=== PATIENT | female | born 1960 | race Caucasian/White ===

== ENCOUNTER 2020-12-22 18:47 | Emergency (ER) | payer OTHER ==
[~2020-12-22] VITALS: Ht 165 cm; Wt 108.8 kg
--- NOTE | 2020-12-22 20:23 | ED General ---
General Chief Complaint: Glucose Problems Stated Complaint: DIZZY/ELEVATED BLOOD SUGAR Source of Information: Patient (WAIFLORINDA Nunes DO) History of Present Illness Date Seen by Provider: Dec 22, 2020 Time Seen by Provider: 18:58 Initial Comments PT ARRIVES VIA POV FROM HOME IN [place] C/O DIZZINESS ALL DAY TODAY C/O ELEVATED BLOOD SUGAR IN 400'S TODAY C/O UPPER ABDOMINAL CRAMPING AND THIS MAKES HER DIZZY NO NAUSEA/VOMITING/DIARRHEA. HAS HAD 2-3 SMALL, HARD BM'S TODAY--STATES SHE WAS STRAINING TO HAVE BM EARLIER TODAY, AND ALMOST PASSED OUT ON THE TOILET STATES SHE HAS FELT LIKE SHE IS GOING TO PASS OUT SEVERAL TIMES TODAY NO FEVER/SWEATS/CHILLS NO URINARY SYMPTOMS C/O THIRST AND HAS BEEN DRINKING WATER ALL DAY, INCLUDING ON ARRIVAL TO ER STATES SHE HAS BEEN ABLE TO EAT NORMALLY TODAY STATES SHE WAS SEEN AT [facility] IN [place] THIS MORNING FOR THIS PROBLEM--STATES HER BLOOD PRESSURE WAS LOW --70'S SYTOLIC--AND THEY GAVE HER IV FLUIDS AND SENT HER HOME HAS AN APPOINTMENT THERE TOMORROW AT 0840 FOR FOLLOW UP PT RECEIVED HER SECOND COVID-19 SHOT ON Tuesday12/19/20 PCP: [facility] (FLORINDA CARRENO DO) Allergies and Home Medications Allergies Coded Allergies: No Allergy Information Available (Unverified , 12/22/20) Patient Home Medication List Home Medication List Reviewed: Yes (FLORINDA CARRENO DO) Review of Systems Review of Systems Constitutional: see HPI; No chills, No diaphoresis; dizziness; No fever, No malaise, No weakness EENTM: no symptoms reported Respiratory: no symptoms reported; No cough, No short of breath Cardiovascular: no symptoms reported; No chest pain Gastrointestinal: see HPI, abdominal pain; No diarrhea, No loss of appetite, No nausea, No vomiting Genitourinary: no symptoms reported Musculoskeletal: no symptoms reported Skin: no symptoms reported Psychiatric/Neurological: No Symptoms Reported Hematologic/Lymphatic: No Symptoms Reported Immunological/Allergic: no symptoms reported (FLORINDA CARRENO DO) Past Hxcarbs-Jnprbu-Pemmqd Hx Past Med/Social Hx: Reviewed and Corrections made (FLORINDA CARRENO DO) Patient Social History Alcohol Use: Denies Use Drug of Choice: DENIES Smoking Status: Never a Smoker (FLORINDA CARRENO DO) Past Medical History Surgeries: Yes Abdominal, Bladder Surgery, Hysterectomy, Oophorectomy, Tonsillectomy Respiratory: No Cardiac: Yes High Cholesterol, Hypertension Neurological: No Genitourinary: No Gastrointestinal: Yes Gastroesophageal Reflux Musculoskeletal: No Endocrine: Yes (OBESITY) Diabetes, Non-Insulin dep HEENT: No Cancer: No Psychosocial: Yes Anxiety, Depression Integumentary: No Blood Disorders: No (FLORINDA CARRENO DO) Family Medical History PAST SURGICAL HISTORY: -TONSILLECTOMY 02/1965 -"BLADDER STRETCHED" 07/1978 -5 LAPAROSCOPIES [phone] FOR INFERTILITY -1 OPEN SURGERY TO REMOVE ENDOMETRIOSIS 1990 -HYSTERECTOMY/BILATERAL SALPINGO-OOPHORECTOMY 03/1996 -COLONOSCOPY 12/2008 (FLORINDA CARRENO DO) Physical Exam Vital Signs Vital Signs - First Documented 12/22/20 19:00 Temp 35.9 Pulse 101 Resp 26 B/P (MAP) 137/72 (93) Pulse Ox 98 (LAINE OVALLE APRN) Vital Signs Capillary Refill : (FLORINDA CARRENO DO) Height, Weight, BMI Height: '" Weight: lbs. oz. kg; BMI Method: General Appearance: No Apparent Distress, WD/WN, Anxious, Obese, Other (MILDLY DYSPNEIC ON ARRIVAL) HEENT: PERRL/EOMI, Pale Conjunctivae (R) Neck: Normal Inspection Respiratory: Normal Breath Sounds, Other (MILDLY DYSPNEIC ON ARRIVAL) Cardiovascular: Regular Rate, Rhythm, No Edema, No JVD, No Murmur, Normal Peripheral Pulses Gastrointestinal: No Pulsatile Mass, Soft, Abnormal Bowel Sounds (DECREASED), Rebound (EQUIVOCAL), Tenderness (DIFFUSE UPPER ABDOMINAL TENDERNESS) Back: No CVA Tenderness Extremity: Normal Inspection, No Pedal Edema Neurologic/Psychiatric: Alert, Oriented x3, No Motor/Sensory Deficits, 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 Norm as Tested, Other (ANXIOUS) Skin: Warm/Dry, Pallor (FLORINDA CARRENO DO) Procedures/Interventions Lumen: triple Central Line Procedure: betadine prep Position: internal jugular (R) Anesthesia: Lidocaine Volume Anesthetic (ccs): 5 Complications: none Post Position: sutured, good blood return, position confirmed w/ CXR (LAINE OVALLE APRN) Progress/Results/Core Measures Suspected Sepsis SIRS Temperature: Pulse: Respiratory Rate: Laboratory Tests 12/22/20 20:29: White Blood Count 15.9H 12/23/20 01:25: White Blood Count 11.7H Blood Pressure / Mean: Laboratory Tests 12/22/20 20:29: Platelet Count 138 12/22/20 20:38: Creatinine 1.03, Total Bilirubin 0.2 12/22/20 22:18: INR Comment 1.1 12/23/20 01:25: Platelet Count 251 (FLORINDA CARRENO DO) Results/Orders Lab Results Laboratory Tests Test 12/22/20 19:08 12/22/20 20:20 12/22/20 20:29 12/22/20 20:38 Range/Units Glucometer 185 H 70-110 MG/DL Blood Gas Puncture Site LR Blood Gas Patient Temperature 35.7 Arterial Blood pH 7.42 7.37-7.43 Arterial Blood Partial Pressure CO2 35 35-45 MMHG Arterial Blood Partial Pressure O2 73 L 79-93 MMHG Arterial Blood HCO3 22 L 23-27 MMOL/L Arterial Blood Total CO2 23.5 21.0-31.0 MMOL/L Arterial Blood Oxygen Saturation 96 94-100 % Arterial Blood Base Excess -1.7 -2.5-2.5 MMOL/L Anthony Test YES-POS Blood Gas Ventilator Setting NO Blood Gas Inspired Oxygen RA White Blood Count 15.9 H 4.3-11.0 10^3/uL Red Blood Count 2.86 L 3.80-5.11 10^6/uL Hemoglobin 8.5 L 11.5-16.0 g/dL Hematocrit 26 L 35-52 % Mean Corpuscular Volume 91 80-99 fL Mean Corpuscular Hemoglobin 30 25-34 pg Mean Corpuscular Hemoglobin Concent 33 32-36 g/dL Red Cell Distribution Width 12.8 10.0-14.5 % Platelet Count 138 130-400 10^3/uL Mean Platelet Volume 11.0 9.0-12.2 fL Immature Granulocyte % (Auto) 1 % Neutrophils (%) (Auto) 80 H 42-75 % Lymphocytes (%) (Auto) 14 12-44 % Monocytes (%) (Auto) 5 0-12 % Eosinophils (%) (Auto) 0 0-10 % Basophils (%) (Auto) 0 0-10 % Neutrophils # (Auto) 12.7 H 1.8-7.8 10^3/uL Lymphocytes # (Auto) 2.2 1.0-4.0 10^3/uL Monocytes # (Auto) 0.8 0.0-1.0 10^3/uL Eosinophils # (Auto) 0.0 0.0-0.3 10^3/uL Basophils # (Auto) 0.0 0.0-0.1 10^3/uL Immature Granulocyte # (Auto) 0.1 0.0-0.1 10^3/uL Neutrophils % (Manual) 80 % Lymphocytes % (Manual) 10 % Monocytes % (Manual) 8 % Eosinophils % (Manual) 1 % Basophils % (Manual) 0 % Band Neutrophils 1 % Polychromasia SLIGHT Anisocytosis SLIGHT Rouleau SLIGHT Sodium Level 139 135-145 MMOL/L Potassium Level 3.9 3.6-5.0 MMOL/L Chloride Level 105 98-107 MMOL/L Carbon Dioxide Level 19 L 21-32 MMOL/L Anion Gap 15 H 5-14 MMOL/L Blood Urea Nitrogen 17 7-18 MG/DL Creatinine 1.03 0.60-1.30 MG/DL Estimat Glomerular Filtration Rate 54 BUN/Creatinine Ratio 17 Glucose Level 197 H 70-105 MG/DL Calcium Level 8.2 L 8.5-10.1 MG/DL Corrected Calcium 8.7 8.5-10.1 MG/DL Magnesium Level 2.0 1.6-2.4 MG/DL Total Bilirubin 0.2 0.1-1.0 MG/DL Aspartate Amino Transf (AST/SGOT) 19 5-34 U/L Alanine Aminotransferase (ALT/SGPT) 23 0-55 U/L Alkaline Phosphatase 68 40-136 U/L Troponin I 0.045 H <0.028 NG/ML Total Protein 5.8 L 6.4-8.2 GM/DL Albumin 3.4 3.2-4.5 GM/DL Amylase Level 29 25-125 U/L Lipase 22 8-78 U/L TSH [place] Testing 1.88 0.35-4.94 UIU/ML (LAINE OVALLE APRN) My Orders Orders - LAINE OVALLE APRN Chest 1 View, Ap/Pa Only (12/22/20 21:54) (LAINE OVALLE APRN) Medications Given in ED Current Medications Medications Dose Ordered Sig/[place] Route Start Time Stop Time Status Last Admin Dose Admin Iohexol 100 ml ONCE ONCE IV 12/22/20 21:30 12/22/20 21:31 DC 12/22/20 21:35 100 ML Sodium Chloride 10 ml NEEDED PRN IV 12/22/20 21:30 12/22/20 21:35 10 ML Sodium Chloride 100 ml ONCE ONCE IV 12/22/20 21:30 12/22/20 21:31 DC 12/22/20 21:35 80 ML (LAINE OVALLE APRN) Vital Signs/I&O 12/22/20 19:00 Temp 35.9 Pulse 101 Resp 26 B/P (MAP) 137/72 (93) Pulse Ox 98 (LAINE OVALLE MAINSPRING TORQUE TESTER) Vital Signs/I&O Capillary Refill : (FLORINDA CARRENO DO) Point of Care Testing Finger Stick Blood Glucose: 185 (FLORINDA CARRENO DO) Progress Note : Progress Note ACCUCHECK 185 ON ARRIVAL NO DETERIORATION IN PT'S CONDITION DURING ER STAY PT DECLINED PAIN MEDICATION UNTIL JUST PRIOR TO TIME OF TRANSFER (FLORINDA CARRENO DO) ECG Initial ECG Impression Date: Dec 22, 2020 Initial ECG Impression Time: 19:17 Initial ECG Rate: 92 Initial ECG Rhythm: Normal Sinus (FLORINDA CARRENO DO) Diagnostic Imaging Comments ABDOMEN XRAYS--PER RADIOLOGIST REPORT AT 2141 INDICATION: Right lower quadrant abdominal pain and dizziness. Supine and upright views of the abdomen are obtained with single view of the chest. There is mild left basilar atelectasis. There is mild to moderate amount of stool seen throughout the colon. There is no evidence of transition point to indicate an obstruction. No free intraperitoneal gas or pneumatosis is identified. There is no evidence of pathologic abdominal calcification. IMPRESSION: Left basilar atelectasis without acute abdominal abnormality. There is [id number]-ct-ycwxfzvm colonic stool burden. CT ABDOMEN/PELVIS--PER RADIOLOGIST VIA PHONE AT 2143 AND PER DICTATED REPORT AT 2154 INDICATION: Abdominal pain and anemia There is extensive low-density throughout the liver. No pancreatic or splenic lesion is identified. There is mild free peritoneal fluid in the upper abdomen. There is extensive retroperitoneal hematoma which appears to arise at the level of the duodenal sweep. In addition, there is an approximately 1.0 x 0.4 cm focus of contrast enhancement likely arising from gastroduodenal artery which may represent pseudoaneurysm. Hematoma extends in the right retroperitoneum. There is mild to moderate amount of pelvic hemoperitoneum. No definite adrenal gland or suspicious renal lesion is identified. There are occasional cortical renal cysts. Opacified bladder is unremarkable in appearance. IMPRESSION: 1. 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 Clinical correlation is recommended. 2. There is also hepatic steatosis. 3. These findings were telephoned directly to the emergency room physician at 2141 on 12/22/2020. Reviewed: Reviewed by Ok (FLORINDA CARRENO DO) Departure Communication (Admissions) 2145--SPOKE WITH DR. DUGGAN, SURGEON EXPORT AGENT, HE WILL VIEW CT SCAN AND CALL ME B ACK [phone]--CALLED DR. DUGGAN, HE IS UNABLE TO VIEW CT FROM HOME, WILL BE IN TO SEE PT. 2353--DR. DUGGAN HERE 112--DR. DUGGAN HAS CONTACTED [facility] AND DR. CATALAN HAS ACCEPTED THE PT. DR. DUGGAN HAS NOW LEFT FACILITY. 0155--CALLED [facility] WITH REPEAT CBC RESULTS. THEY ADVISE TO HOLD TRANSFUSION AT THIS TIME, PT'S VITALS ARE STILL NORMAL. THEY ADVISE TO SEND THE 2 UNITS OF BLOOD WITH PT ON AMBULANCE, IN THE EVENT SHE SHOULD BECOME UNSTABLE. THIS INFORMATION WAS GIVEN TO EMS CREW. (FLORINDA CARRENO DO) Impression Primary Impression: Intraabdominal hemorrhage Additional Impressions: SUSPECTED DUODENAL ULCER IDDM (insulin dependent diabetes mellitus) Anemia Retroperitoneal hemorrhage Disposition: ADMITTED INPATIENT Condition: Stable/Unchanged Transfer Transfer Reason: Exceeds level of care Transfer Facility: Method of Transfer: EMS (FLORINDA CARRENO DO) FLORINDA CARRENO DO Dec 22, 2020 20:23 LAINE OVALLE APRN Dec 22, 2020 22:17
[2020-12-22 20:27] LABS: ABG BASE EXCESS -1.7 MMOL/L (-2.5-2.5); ABG OXYGEN SATURATION 96 % (94-100); ABG PCO2 35 MMHG (35-45); ABG PH 7.42 (7.37-7.43); ABG PO2 73 MMHG (79-93); ABG TCO2 23.5 MMOL/L (21.0-31.0)
[2020-12-22 20:32] LABS: ALLENS TEST YES-POS; INSPIRED O2 RA; PATIENT TEMP 35.7; VENTILATOR NO
[2020-12-22 20:49] LABS: BASOPHILS % (AUTO) 0 % (0-10); EOSINOPHILS % (AUTO) 0 % (0-10); HEMATOCRIT 26 % (35-52); HEMOGLOBIN 8.5 g/dL (11.5-16.0); LYMPHOCYTES # (AUTO) 2.2 10^3/uL (1.0-4.0); LYMPHOCYTES % (AUTO) 14 % (12-44); MEAN CORPUSCULAR HEMOGLOBIN 30 pg (25-34); MEAN CORPUSCULAR HGB CONC 33 g/dL (32-36); MEAN CORPUSCULAR VOLUME 91 fL (80-99); MONOCYTES # (AUTO) 0.8 10^3/uL (0.0-1.0); MONOCYTES % (AUTO) 5 % (0-12); NEUTROPHILS # (AUTO) 12.7 10^3/uL (1.8-7.8); NEUTROPHILS % (AUTO) 80 % (42-75); PLATELET COUNT 138 10^3/uL (130-400); WHITE BLOOD COUNT 15.9 10^3/uL (4.3-11.0)
[2020-12-22 21:03] LABS: ALBUMIN 3.4 GM/DL (3.2-4.5); BILIRUBIN,TOTAL 0.2 MG/DL (0.1-1.0); CALCIUM 8.2 MG/DL (8.5-10.1); CREATININE SERUM 1.03 MG/DL (0.60-1.30); POTASSIUM 3.9 MMOL/L (3.6-5.0); TOTAL PROTEIN 5.8 GM/DL (6.4-8.2)
[2020-12-22 21:10] LABS: ANISOCYTOSIS SLIGHT; BAND NEUTROPHILS 1 %; BASOPHILS % (MANUAL) 0 %; EOSINOPHILS % (MANUAL) 1 %; LYMPHOCYTES % (MANUAL) 10 %; MONOCYTES % (MANUAL) 8 %; NEUTROPHILS % (MANUAL) 80 %; POLYCHROMASIA SLIGHT; ROULEAUX SLIGHT
[2020-12-22 21:23] LABS: TSH (THYROID ANALYZER) 1.88 UIU/ML (0.35-4.94)
[2020-12-22] MEDS ORDERED: IOHEXOL 350 MG/ML 100 ML (OMNIPAQUE 350) VIAL IV ONE (21:30)
[2020-12-22] MEDS ORDERED: HOLD METFORMIN - RECEIVED CONTRAST 20 ML VIAL IV SCH (21:30)
[2020-12-22] MEDS ORDERED: PANTOPRAZOLE 40 MG (PROTONIX) VIAL IV ONE ×2 (21:30→21:45)
[2020-12-22] MEDS ORDERED: NS IV 1000 ML 1,000 ML IV SCH (21:30)
[2020-12-22] MEDS ORDERED: CATHETER FLUSH 10 ML SYR IV PRN (21:30)
[2020-12-22] MEDS ORDERED: NS 100 ML (IVPB) BAG IV ONE (21:30)
--- NOTE | 2020-12-22 21:35 | Diagnostic Imaging Report ---
INDICATION: Right lower quadrant abdominal pain and dizziness. Supine and upright views of the abdomen are obtained with single view of the chest. There is mild left basilar atelectasis. There is mild to moderate amount of stool seen throughout the colon. There is no evidence of transition point to indicate an obstruction. No free intraperitoneal gas or pneumatosis is identified. There is no evidence of pathologic abdominal calcification. IMPRESSION: Left basilar atelectasis without acute abdominal abnormality. There is wlqw-og-uxqrchlq colonic stool burden. Dictated by: Dictated on workstation # [id number]
--- NOTE | 2020-12-22 21:52 | Diagnostic Imaging Report ---
PROCEDURE: CT abdomen and pelvis with contrast, rule out appendicitis. TECHNIQUE: Multiple contiguous axial images were obtained through the abdomen and pelvis after the administration of intravenous contrast. All CT scans use one or more of the following dose optimizing techniques: automated exposure control, MA and/or KvP adjustment based on patient size and exam type or iterative reconstruction. INDICATION: Abdominal pain and anemia There is extensive low-density throughout the liver. No pancreatic or splenic lesion is identified. There is mild free peritoneal fluid in the upper abdomen. There is extensive retroperitoneal hematoma which appears to arise at the level of the duodenal sweep. In addition, there is an approximately 1.0 x 0.4 cm focus of contrast enhancement likely arising from gastroduodenal artery which may represent pseudoaneurysm. Hematoma extends in the right retroperitoneum. There is mild to moderate amount of pelvic hemoperitoneum. No definite adrenal gland or suspicious renal lesion is identified. There are occasional cortical renal cysts. Opacified bladder is unremarkable in appearance. IMPRESSION: 1. 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 Clinical correlation is recommended. 2. There is also hepatic steatosis. 3. These findings were telephoned directly to the emergency room physician at 2147 on 12/22/2020. Dictated by: Dictated on workstation # [id number]
[2020-12-22 22:39] LABS: INR 1.1 (0.8-1.4); PROTHROMBIN TIME PATIENT 14.6 SEC (12.2-14.7)
[2020-12-23 00:28] LABS: BILIRUBIN,URINE NEGATIVE (NEGATIVE); CLARITY,URINE SL CLOUDY; COLOR,URINE YELLOW; GLUCOSE, URINE (UA) NEGATIVE (NEGATIVE); KETONES,URINE NEGATIVE (NEGATIVE); LEUKOCYTE ESTERASE ,URINE TRACE (NEGATIVE); NITRITE,URINE NEGATIVE (NEGATIVE); PH,URINE 5.5 (5-9); PROTEIN,URINE NEGATIVE (NEGATIVE)
[2020-12-23 00:34] LABS: BACTERIA,URINE TRACE /HPF; SQUAMOUS EPITHELIAL CELL,UR 25-50 /HPF; WBC,URINE 0-2 /HPF
--- NOTE | 2020-12-23 00:43 | Consultation - Surgery ---
History of Present Illness History of Present Illness Patient Consulted On(kishore/time) 12/22/20 23:51 Time Seen by Provider: 23:51 History of Present Illness Surgery is asked to consult regarding Retroperitoneal Hematoma. HPI per ED: PT ARRIVES VIA POV FROM HOME, C/O DIZZINESS ALL DAY TODAY, C/O ELEVATED BLOOD SUGAR IN 400'S TODAY, C/O UPPER ABDOMINAL CRAMPING AND THIS MAKES HER DIZZY NO NAUSEA/VOMITING/DIARRHEA. HAS HAD 2-3 SMALL, HARD BM'S TODAY--STATES SHE WAS STRAINING TO HAVE BM EARLIER TODAY, AND ALMOST PASSED OUT ON THE TOILET NO FEVER/SWEATS/CHILLS, NO URINARY SYMPTOMS, C/O THIRST AND HAS BEEN DRINKING WATER ALL DAY, INCLUDING ON ARRIVAL TO ER, STATES SHE HAS BEEN ABLE TO EAT NORMALLY TODAY STATES SHE WAS SEEN AT [facility] IN [place] TODAY FOR THIS PROBLEM--STATES HER BLOOD PRESSURE WAS LOW --70'S SYTOLIC--AND THEY GAVE HER IV FLUIDS HAS AN APPOINTMENT THERE TOMORROW AT 0840 FOR FOLLOW UP. PT RECEIVED HER SECOND COVID-19 SHOT ON Tuesday12/19/20 When I spoke to pt she stated she has never had pain like this before; states s he has had "acid reflux" for 10 years. She takes a baby ASA daily. Pain woke her from sleep at 3am Tuesday morning and she thought "I just had to go to bathroom". Got up to go to the bathroom and passed, she states + LOC, but unknown how long and that she stayed down for 20 min on the floor before she could go back to the bed. She laid there until about 5 am and tried again; again felt dizzy and eased down to the floor with no LOC this time. She went to [facility] urgent care, got fixed up, felt better and went home. Then pain came back and she told her she needed to go to the hospital. Pain was severe at home, but has not needed any pain meds since she came to the ER. Allergies and Home Medications Allergies Coded Allergies: No Allergy Information Available (Unverified , 12/22/20) Patient Home Medication List Home Medication List Reviewed: Yes Past Mmbdamc-Mgivwn-Tvxccg Hx Patient Social History Drug of Choice: Denies Smoking Status: Never a Smoker Recent Hopitalizations: No Alcohol Use?: No Seasonal Allergies Seasonal Allergies: No Surgeries History of Surgeries: Yes Surgeries: Abdominal, Bladder Surgery, Hysterectomy, Oophorectomy, Tonsillectomy Respiratory History of Respiratory Disorde: No Cardiovascular History of Cardiac Disorders: Yes Cardiac Disorders: High Cholesterol, Hypertension Neurological History of Neurological Disord: No Reproductive System [employer] History: Menopausal Genitourinary History of Genitourinary Disor: No Gastrointestinal History of Gastrointestinal Di: Yes Gastrointestinal Disorders: Gastroesophageal Reflux Musculoskeletal History of Musculoskeletal Dis: No Endocrine History of Endocrine Disorders: Yes (OBESITY) Endocrine Disorders: Diabetes, Non-Insulin dep HEENT History of HEENT Disorders: No Cancer History of Cancer: No Psychosocial History of Psychiatric Problem: Yes Behavioral Health Disorders: Anxiety, Depression Integumentary History of Skin or Integumenta: No Blood Transfusions History of Blood Disorders: No Family Medical History Significant Family History: Cancer (bladder - father), Diabetes (mother), Hypertension (mother) Review of Systems-General Constitutional: diaphoresis, dizziness, weakness EENTM: No blurred vision, No mouth pain, No mouth swelling, No epistaxis Respiratory: No cough; dyspnea on exertion; No hemoptysis, No wheezing Cardiovascular: No chest pain, No edema, No palpitations Gastrointestinal: abdominal pain; No hematemesis, No jaundice, No nausea, No vomiting Genitourinary: No dysuria, No frequency, No hematuria Musculoskeletal: joint pain, joint swelling, muscle pain, muscle stiffness Skin: No change in color, No change in hair/nails, No lesions Psychiatric/Neurological: Anxiety, Depressed; Denies Numbness, Denies Seizure, Denies Tremors Other Pt denies any hx of abnormal bleeding or bruising Physical Exam-General Problems Physical Exam Vital Signs Vital Signs - First Documented 12/22/20 19:00 Temp 35.9 Pulse 101 Resp 26 B/P (MAP) 137/72 (93) Pulse Ox 98 Capillary Refill : Less Than 3 Seconds General Appearance: no apparent distress, obese Eyes: Bilateral Eye PERRL, Bilateral Eye EOMI HEENT: pharynx normal; No scleral icterus (R), No scleral icterus (L) Neck: non-tender, full range of motion, supple Respiratory: lungs clear, normal breath sounds, no respiratory distress, no accessory muscle use Cardiovascular: regular rate, rhythm, no murmur Gastrointestinal: normal bowel sounds, soft, no organomegaly, no pulsatile mass, tenderness (diffusely in all 4 quadrants), hernia (small umbilical) Rectal: deferred Back: no CVA tenderness, no vertebral tenderness Extremities: no pedal edema, no calf tenderness, normal capillary refill Neurologic/Psychiatric: 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 nml as tested, no motor/sensory deficits, alert, normal mood/affect, oriented x 3 Skin: normal color, warm/dry Lymphatic: no adenopathy (neck, axilla or groin) Data Review Labs Laboratory Tests 12/22/20 19:08: Glucometer 185H 12/22/20 20:20: Blood Gas Puncture Site LR, Blood Gas Patient Temperature 35.7, Arterial Blood pH 7.42, Arterial Blood Partial Pressure CO2 35, Arterial Blood Partial Pressure O2 73L, Arterial Blood HCO3 22L, Arterial Blood Total CO2 23.5, Arterial Blood Oxygen Saturation 96, Arterial Blood Base Excess -1.7, Anthony Test YES-POS, Blood Gas Ventilator Setting NO, Blood Gas Inspired Oxygen RA 12/22/20 20:29: White Blood Count 15.9H, Red Blood Count 2.86L, Hemoglobin 8.5L, Hematocrit 26L, Mean Corpuscular Volume 91, Mean Corpuscular Hemoglobin 30, Mean Corpuscular Hemoglobin Concent 33, Red Cell Distribution Width 12.8, Platelet Count 138, Mean Platelet Volume 11.0, Immature Granulocyte % (Auto) 1, Neutrophils (%) (Auto) 80H, Lymphocytes (%) (Auto) 14, Monocytes (%) (Auto) 5, Eosinophils (%) (Auto) 0, Basophils (%) (Auto) 0, Neutrophils # (Auto) 12.7H, Lymphocytes # (Auto) 2.2, Monocytes # (Auto) 0.8, Eosinophils # (Auto) 0.0, Basophils # (Auto) 0.0, Immature Granulocyte # (Auto) 0.1, Neutrophils % (Manual) 80, Lymphocytes % (Manual) 10, Monocytes % (Manual) 8, Eosinophils % (Manual) 1, Basophils % (Manual) 0, Band Neutrophils 1, Polychromasia SLIGHT, Anisocytosis SLIGHT, Rouleau SLIGHT 12/22/20 20:38: Sodium Level 139, Potassium Level 3.9, Chloride Level 105, Carbon Dioxide Level 19L, Anion Gap 15H, Blood Urea Nitrogen 17, Creatinine 1.03, Estimat Glomerular Filtration Rate 54, BUN/Creatinine Ratio 17, Glucose Level 197H, Calcium Level 8.2L, Corrected Calcium 8.7, Magnesium Level 2.0, Total Bilirubin 0.2, Aspartate Amino Transf (AST/SGOT) 19, Alanine Aminotransferase (ALT/SGPT) 23, Alkaline Phosphatase 68, Troponin I 0.045H, Total Protein 5.8L, Albumin 3.4, Amylase Level 29, Lipase 22, TSH [place] Testing 1.88 12/22/20 22:18: Prothrombin Time 14.6, INR Comment 1.1, Activated Partial Thromboplast Time 36H 12/23/20 00:22: Radiology Date of Exam:12/22/20 CT ABD/PELV W (APPENDICITIS) PROCEDURE: CT abdomen and pelvis with contrast, rule out appendicitis. TECHNIQUE: Multiple contiguous axial images were obtained through the abdomen and pelvis after the administration of intravenous contrast. All CT scans use one or more of the following dose optimizing techniques: automated exposure control, MA and/or KvP adjustment based on patient size and exam type or iterative reconstruction. INDICATION: Abdominal pain and anemia There is extensive low-density throughout the liver. No pancreatic or splenic lesion is identified. There is mild free peritoneal fluid in the upper abdomen. There is extensive retroperitoneal hematoma which appears to arise at the level of the duodenal sweep. In addition, there is an approximately 1.0 x 0.4 cm focus of contrast enhancement likely arising from gastroduodenal artery which may represent pseudoaneurysm. Hematoma extends in the right retroperitoneum. There is mild to moderate amount of pelvic hemoperitoneum. No definite adrenal gland or suspicious renal lesion is identified. There are occasional cortical renal cysts. Opacified bladder is unremarkable in appearance. IMPRESSION: 1. 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 Clinical correlation is recommended. 2. There is also hepatic steatosis. 3. These findings were telephoned directly to the emergency room physician at 2148 on 12/22/2020. Dictated by: Dictated on workstation # [id number] Dict: 12/22/202140 Trans: 12/22/202156 [facility] [id number] Interpreted by: ERNIE CASTANEDA MD Electronically signed by: ERNIE CASTANEDA MD 12/22/202156 Assessment/Plan Assessment/Plan Assessment/Plan Retroperitoneal Hematoma with Mild hemoperitoneum ??Gastroduodenal bleed vs. Pseudoaneurysm DMII, HTN, GERD Hypothyroid, Depression, Anxiety Pt is stable right now and I talked to her about CT findings. I think she has 3 options; IR to coil bleeding vessel, EGD and Open exploration to control bleeding. I am not sure EGD will find anything because it looks like it is bleeding posteriorly and no blood seen in the stomach. I think Open Control should be last resort or saved for Emergency. Least invasive option would be the best for her; I called [facility] one line and am waiting to hear back (they were supposed to speak with IR). She is stable right now for transfer. I have spent over an hour on this pt; looking at films at home, calling radiologist to go over films, attempting transfer, discussion with ER physician and talking to pt. BP should be controlled and not allowed to get to high, I would hold off on blood right now (don't want to blow off any clot), IV fluids, pain meds, IV Protonix, NPO. I will wait here with BILL DUGGAN DO Dec 23, 2020 00:43
[2020-12-23 01:30] LABS: HEMOGLOBIN 7.3 g/dL (11.5-16.0); MEAN PLATELET VOLUME 9.5 fL (9.0-12.2); WHITE BLOOD COUNT 11.7 10^3/uL (4.3-11.0)
[2020-12-23] MEDS ORDERED: fentaNYL INJECTION 100 MCG/2 ML AMP IVP ONE (02:00)
[2020-12-23 02:15] VITALS: BP 138/78
--- NOTE | 2020-12-23 06:37 | Diagnostic Imaging Report ---
Clinical indications: Evaluate central line placement. Exam: Portable chest x-ray upright view. Comparisons: None. Findings: Right IJ central line seen with tip in the midsuperior vena cava region. Lungs/pleura: Lungs are clear. There is no pneumothorax. There is no pleural effusion. Mediastinum: Unremarkable. Pulmonary vasculature: Unremarkable. Heart: Unremarkable. Bones/extrathoracic soft tissue: There are hypertrophic spurs involving the thoracic spine. Impression: 1: There is no radiographic evidence of acute cardiopulmonary process. 2: Right IJ central line seen with tip in the midsuperior vena cava region. There is no pneumothorax. Dictated by: Dictated on workstation # [id number]
== END 2020-12-23 02:15 | disposition short-term general hospital (02) ==
LOC: ER 18:51
DX: E11.9 Type 2 diabetes mellitus without complications (principal); K66.1 Hemoperitoneum; D64.9 Anemia, unspecified; I10 Essential (primary) hypertension; E66.9 Obesity, unspecified
CPT/HCPCS: 36556; 71045; 74022; 74177; 80053; 81000; 82150; 82805; 82962; 83690; 83735; 84443; 84484; 85007; 85027 ×2; 85610; 85730; 86850; 86900; 86901; 86920; 93005; 93041; 99291; P9016; 36415

== ENCOUNTER 2021-09-05 20:12 | Outpatient (CLI) | payer OTHER | END 2021-09-06 06:35 | disposition home or self-care (01) | LOC: SLEEP 20:12 | PROVIDERS: ATTEND Nurse Practitioner | DX: G47.9 Sleep disorder, unspecified (principal) | CPT/HCPCS: 95810 ==